=== PATIENT | female | born 1980 | race Caucasian/White ===

== ENCOUNTER 2021-03-09 12:27 | Emergency (ER) | payer SELFPAY ==
[~2021-03-09] VITALS: Ht 157.5 cm; Wt 72.0 kg
[2021-03-09] MEDS ORDERED: IBUPROFEN 400MG TABLET PO ONE (13:00)
[2021-03-09] MEDS ORDERED: ACETAMINOPHEN 325MG TABLET PO ONE (13:00)
[2021-03-09 13:04] LABS: BASOPHILS % 0.7 % (0.0-2.0); EOSINOPHILS % 0.9 % (0.0-5.0); HEMATOCRIT. 39.7 % (36.0-48.0); HEMOGLOBIN. 12.9 g/dL (12.0-16.0); LYMPHOCYTES % 22.7 % (20.0-50.0); MEAN PLATELET VOLUME 8.2 fl (7.4-10.4); MONOCYTES % 4.6 % (2.0-8.0); NEUTROPHILS % 71.1 % (40.0-76.0); PLATELET 348 x1000/uL (130-400); RED BLOOD CELL COUNT 5.15 mill/uL (4.2-5.4); RED CELL DISTRIBUTION WIDTH 15.6 % (11.6-14.6)
[2021-03-09 13:11] VITALS: BP 150/88
[2021-03-09 13:14] LABS: CHLORIDE 109 mEq/L (98-107)
[2021-03-09 13:26] LABS: HCG SCREEN NEGATIVE
[2021-03-09] MEDS ORDERED: IBUP-2028 MT (15:22)
== END 2021-03-09 15:43 | disposition home or self-care (01) ==
LOC: ER 12:41
DX: R07.89 Other chest pain (principal); I10 Essential (primary) hypertension; E11.9 Type 2 diabetes mellitus without complications; Z11.9 Encounter for screening for infectious and parasitic diseases, unspecified; Z98.890 Other specified postprocedural states
CPT/HCPCS: 36415; 71045; 80053; 81025; 84703; 85025; 99284